=== PATIENT | male | born 2000 | race Caucasian/White ===

== ENCOUNTER 2022-04-30 21:08 | Emergency (ER) | payer BC ==
[~2022-04-30] VITALS: Ht 172.7 cm; Wt 64.0 kg
[2022-04-30] MEDS ORDERED: PROCHLORPERAZINE EDISYLATE 10 MG/2 ML VIAL ONE (21:24)
[2022-04-30] MEDS ORDERED: HYDROMORPHONE 1 MG/1 ML DISP.SYRIN ONE (21:24)
[2022-04-30] MEDS ORDERED: PROCHLORPERAZINE EDISYLATE 10 MG/2 ML VIAL IV ONE (21:30)
[2022-04-30] MEDS ORDERED: IV NORMAL SALINE 1000 ML BAG IV ONE (21:30)
[2022-04-30] MEDS ORDERED: HYDROMORPHONE 1 MG/1 ML DISP.SYRIN IV ONE (21:30)
[2022-04-30 21:32] LABS: HEMATOCRIT 47.3 % (36.7-47.1); MEAN CORPUSCULAR HEMOGLOBIN 29.6 uug (23.8-33.4); PLATELET COUNT (AUTO) 252 K/uL (152-348)
[2022-04-30 21:40] LABS: CREATININE 0.9 mg/dL (0.6-1.3); POTASSIUM 4.1 mmol/L (3.5-5.1)
[2022-04-30 21:46] LABS: BILIRUBIN,DIRECT 0.2 mg/dL (0.0-0.2); BILIRUBIN,TOTAL 1.2 mg/dL (0.2-1.0)
[2022-04-30] MEDS ORDERED: IV NS 1000 ML 1,000 ML IV ONE (22:00)
[2022-04-30] MEDS ORDERED: IOHEXOL 300MG/ML 100 ML INFUS..BTL ONE (22:49)
[2022-04-30] MEDS ORDERED: SWABABLE VALVE TRANSFER SET EA MC ONE (22:49)
[2022-04-30] MEDS ORDERED: IV NORMAL SALINE 250 ML IV ONE (22:49)
--- NOTE | 2022-04-30 22:56 | NUR ---
PATIENT AMBULATED TO THE RESTROOM WITH STEADY GAIT, NAD NOTED.
[2022-04-30] MEDS ORDERED: ONDANSETRON 4 MG/2 ML VIAL ONE (22:59)
[2022-04-30] MEDS ORDERED: ONDANSETRON 4 MG/2 ML VIAL IV ONE (23:00)
[2022-04-30] MEDS ORDERED: levoFLOXacin 500 MG/D5W 100ML PIGGYBACK IV ONE (23:45)
[2022-04-30] MEDS ORDERED: levoFLOXacin 500 MG/D5W 100 ML ONE (23:58)
[2022-05-01] MEDS ORDERED: LEVO500T90 PO (00:41)
[2022-05-01] MEDS ORDERED: PROC10TA29 PO (00:41)
[2022-05-01] MEDS ORDERED: HYDR-3972 PO (00:41)
--- NOTE | 2022-05-01 01:06 | NUR ---
Patient discharged to home in stable condition. Written and verbal after care instructions given. Patient verbalizes understanding of instructions. Stressed follow up or return to ER for worsening s/s. Patient is a/ox4, NAD noted. patient is ambulatory with steady gait, accompanied by his mom and SO
[2022-05-01 01:07] VITALS: BP 115/64
== END 2022-05-01 01:07 | disposition home or self-care (01) ==
LOC: ER 21:12
DX: K52.9 Noninfective gastroenteritis and colitis, unspecified (principal); D72.828 Other elevated white blood cell count
CPT/HCPCS: J1956 ×17; 36415; 83690; 85025; J0780; J1170; J2405; J7040; Q9967